=== PATIENT | male | born 1985 | race Caucasian/White ===

== ENCOUNTER 2021-01-14 | Emergency (ER) | payer OTHER ==
[2021-01-14] MEDS ORDERED: PERCOCET 5-3251 EACH PO (03:18)
[2021-01-14] MEDS ORDERED: IBUPROFEN800 MG PO (03:18)
== END 2021-01-14 03:37 | disposition home or self-care (01) ==
LOC: FER
DX: S82.831A Other fracture of upper and lower end of right fibula, initial encounter for closed fracture (principal); F17.200 Nicotine dependence, unspecified, uncomplicated; X50.0XXA Overexertion from strenuous movement or load, initial encounter; Y93.72 Activity, wrestling; Y92.009 Unspecified place in unspecified non-institutional (private) residence as the place of occurrence of the external cause
CPT/HCPCS: 73610; 73630; J1885